=== PATIENT | male | born 1995 | race Caucasian/White ===

== ENCOUNTER 2018-08-26 10:59 | Day surgery (SDC) | payer OTHER ==
[2018-08-25 09:37] VITALS: BMI 27.8
[2018-08-26] MEDS ORDERED: CEFAZOLIN/Water 2 GM/20 ML SYRINGE ONE (11:26)
[2018-08-26] MEDS ORDERED: Lidocaine 1% PF 5 ML VIAL ONE (11:38)
[2018-08-26] MEDS ORDERED: PROPOFOL 200 MG/20 ML VIAL ONE (11:38)
[2018-08-26] MEDS ORDERED: Ondansetron PF 4 MG/2 ML Vial ONE (11:38)
[2018-08-26] MEDS ORDERED: Ketorolac Tromethamine 30 MG/ML VIAL ONE (11:38)
[2018-08-26] MEDS ORDERED: Scopolamine 1.5 mg/72 hour Patch ONE (12:15)
[2018-08-26] MEDS ORDERED: Lidocaine 1% w/Epinephrine 1:100K 30 ML VIAL ONE (12:26)
[2018-08-26] MEDS ORDERED: Lidocaine 1% (PF) 30 ML VIAL ONE (12:46)
[2018-08-26] MEDS ORDERED: Bupivacaine PF 0.5% 30 ML VIAL ONE (13:27)
[2018-08-26] MEDS ORDERED: Fentanyl 100 MCG/2 ML VIAL ONE (14:41)
--- NOTE | 2018-08-26 18:33 | RAD ---
LEFT KNEE ONE VIEW: 08/26/18 Single AP portable fluoroscopic spot view is presented for interpretation. HISTORY: Intra operative evaluation COMPARISON: None. FINDINGS/IMPRESSION: The lateral part of the left knee joint is obscured. No gross malalignment is seen on this single AP view portable fluoroscopic spot images. POS: RRE
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
== END 2018-08-26 16:01 | disposition home or self-care (01) ==
LOC: SDC 10:59
PROVIDERS: ATTEND Orthopaedic Surgery
PROC: 0YPBXYZ Removal of Other Device from Left Lower Extremity, External Approach (ICD-10-PCS; principal; 2018-08-26)
DX: T85.848A Pain due to other internal prosthetic devices, implants and grafts, initial encounter (principal); Z87.891 Personal history of nicotine dependence
CPT/HCPCS: 76001; J2001; J3010; S0020